=== PATIENT | male | born 1975 | race Caucasian/White ===

== ENCOUNTER 2020-11-28 16:51 | Emergency (ER) | payer OTHER ==
[~2020-11-28] VITALS: Ht 182.9 cm; Wt 95.3 kg
[2020-11-28] MEDS ORDERED: APAP W/CODEINE1 TA2 PO (18:58)
[2020-11-28] MEDS ORDERED: CEPHALEXIN500 MG PO (18:58)
[2020-11-28 19:27] VITALS: BP 141/72
== END 2020-11-28 19:38 | disposition home or self-care (01) ==
LOC: ER 16:51
DX: S81.811A Laceration without foreign body, right lower leg, initial encounter (principal); S01.112A Laceration without foreign body of left eyelid and periocular area, initial encounter; Z91.09 Other allergy status, other than to drugs and biological substances; W11.XXXA Fall on and from ladder, initial encounter; Y93.89 Activity, other specified; Y92.89 Other specified places as the place of occurrence of the external cause; Y99.8 Other external cause status